=== PATIENT | female | born 1965 | race Caucasian/White ===

== ENCOUNTER 2018-07-03 19:32 | Emergency (ER) | payer MEDICAID ==
[2018-07-03] MEDS ORDERED: 0.9 % SODIUM CHLORIDE 1,000 ML BAG IV ONE (19:50)
[2018-07-03] MEDS ORDERED: KETOROLAC 30 MG/ML VIAL IVP ONE (19:50)
--- NOTE | 2018-07-03 19:58 | Emergency Department Record ---
History of Present Illness - General Chief Complaint: Back Pain/Injury Stated Complaint: LOWER BACK PAIN / BURNING WHEN URINATING Time Seen by Provider: 07/03/18 19:45 Source: Patient Mode of Arrival: Ambulatory Limitations: No limitations - History of Present Illness Initial Comments: 52 yo female presents with about one hour of left flank pain. Over the last week she has had some mild burning with urination at times. No fever. No nausea or vomiting. No diarrhea. She had a history of bilateral ureteral renal stones in 2014. No stones since that time. No visible blood in the urine. PCP is Reynaldo. She does not see a urologist. MD Complaint: Back pain Onset/Timin -: Week(s) Place: Home Radiation: Other (Left flank) Severity scale (1-10): 5 Quality: Aching Consistency: Getting worse Improves With: None Worsens With: Other Context: Other Associated Symptoms: Other - Related Data Home Medications Medication Instructions Recorded Confirmed Last Taken Amlodipine Besylate [Norvasc] 5 mg PO DAILY 07/03/18 07/03/18 07/03/18 Previous Rx's Medication Instructions Recorded Ciprofloxacin HCl [Cipro] 500 mg PO Q12HR #12 tablet 07/03/18 Allergies Allergy/AdvReac Type Severity Reaction Status Date / Time IOANA Inhibitors Allergy Severe SWELLING Verified 05/11/16 01:10 OF THE FACE Travel Screening - Travel/Exposure Within Last 30 Days Have you traveled within the last 30 days?: No - Travel Symptoms Symptom Screening: None Review of Systems Constitutional: Denies: Chills, Fever, Malaise, Weakness Eyes: Denies: Eye discharge ENT: Denies: Congestion, Throat pain Respiratory: Denies: Cough, Dyspnea Cardiovascular: Denies: Chest pain, Syncope Endocrine: Denies: Fatigue Gastrointestinal: Denies: Abdominal pain, Diarrhea, Nausea, Vomiting Genitourinary: Reports: Dysuria Musculoskeletal: Reports: Back pain. Denies: Arthralgia, Neck pain Skin: Denies: Bruising, Change in color, Rash Neurological: Denies: Headache, Vertigo Psychiatric: Denies: Anxiety Hematological/Lymphatic: Denies: Easy bleeding, Easy bruising Past Medical History - SOCIAL HISTORY Smoking Status: Never smoker - RESPIRATORY Hx Respiratory Disorders: No - CARDIOVASCULAR Hx Cardio Disorders: Yes Hx Hypertension: Yes - NEURO Hx Neuro Disorders: No - GI Hx GI Disorders: No - Hx Genitourinary Disorders: Yes Hx Kidney Stones: Yes (last one 1 yr ago per patient) - ENDOCRINE Hx Endocrine Disorders: No - MUSCULOSKELETAL Hx Musculoskeletal Disorders: No - PSYCH Hx Psych Problems: No - HEMATOLOGY/ONCOLOGY Hx Hematology/Oncology Disorders: No Family Medical History Any Significant Family History?: Yes Hx HTN: Father Physical Exam - General General Appearance: Alert, Oriented x3, Cooperative, No acute distress Limitations: No limitations - Head Head exam: Atraumatic, Normal inspection - Eye Eye exam: Normal appearance. negative: Conjunctival injection, Scleral icterus - ENT ENT exam: Normal exam Ear exam: Normal external inspection Nasal Exam: Normal inspection Mouth exam: Normal external inspection - Neck Neck exam: Normal inspection - Respiratory Respiratory exam: Normal lung sounds bilaterally. negative: Respiratory distress - Cardiovascular Cardiovascular Exam: Regular rate, Normal rhythm, Normal heart sounds - GI/Abdominal GI/Abdominal exam: Soft. negative: Distended, Guarding, Tenderness - Rectal Rectal exam: Deferred - exam: Deferred - Extremities Extremities exam: Normal inspection - Back Back exam: Reports: CVA tenderness (L), Full ROM - Neurological Neurological exam: Alert, Oriented X3 - Psychiatric Psychiatric exam: Normal affect, Normal mood - Skin Skin exam: Dry, Intact, Normal color, Warm Course Vital Signs 07/03/18 19:39 Temperature 98.9 F Pulse Rate 98 H Respiratory 20 Rate Blood Pressure 183/100 Pulse Ox 99 - Reevaluation(s) Reevaluation #1: 07/03/18 20:20 No acute changes on the CBC 07/03/18 20:48 The UA is consistent with UTI. Blood noted but she is on her menstrual cycle. 07/03/18 21:[address] demonstrates a possible 1mm distal stone with mild L sided hydronephrosis , there is another large stone in the bladder, this stone was previously noted on a scan in 2015. The stone is a little larger on this scan. 07/03/18 21:[address] Bubba Balderrama for Dr Trimble. We discussed the CT and the labs/UA. Given the stone is matias, very distal, no fever, no increased WBC count, no pain , no nausea now he recommend CT on Cipro with pain and fever precautions. If either occur she is to go to [facility]. The patient is in agreement with the plan. Medical Decision Making - Lab Data Result diagrams: 07/03/18 20:07 07/03/18 20:07 Disposition Disposition: Discharge Clinical Impression: Urinary tract infection, Renal stones Disposition: Home, Self-Care Condition: (1) Good Instructions: Urinary Tract Infection in Women (ED), Renal Colic (ED) Additional Instructions: Go directly to the [facility] if you have any uncontrolled pain or any fever Take the antibiotic twice daily Call the office on Friday to be seen Take a copy of the CT scan with your at that time Prescriptions: Ciprofloxacin HCl [Cipro] 500 mg PO Q12HR #12 tablet Referrals: [facility] [] - Forms: Patient Portal Access Time of Disposition: 22:30 Quality - Quality Measures Quality Measures: N/A - Blood Pressure Screening Does Patient Have Any of the Following: Active Dx of HTN Blood Pressure Classification: Hypertensive Reading Systolic Measurement: 156 Diastolic Measurement: 65 Screening for High Blood Pressure: Patient Exclusion, Hx of HTN [[id number]]
[2018-07-03 20:17] LABS: BASO % 0.7 % (0-6); EOS % 3.2 % (0-6); GRAN % 55.5 % (47-80); HEMATOCRIT 43.8 % (35.0-47.0); MEAN CELL VOLUME 87.3 fl (81-97); MEAN CORPUSCULAR HEMOGLOBIN 27.9 pg (27-33); MEAN PLATELET VOLUME 8.6 fl (7.4-10.4); MONO % 7.6 % (0-9); PLATELET COUNT 403 K/uL (130-400); RED BLOOD COUNT 5.02 M/uL (3.80-5.40); RED CELL DISTRIBUTION WIDTH 14.8 % (11.5-14.5); WHITE BLOOD COUNT W/O DIFF 9.1 K/uL (4.2-12.2)
[2018-07-03 20:17] LABS: URINE APPEARANCE CLEAR; URINE BILIRUBIN NEGATIVE (NEGATIVE); URINE BLOOD LARGE (NEGATIVE); URINE COLOR YELLOW; URINE GLUCOSE (UA) NEGATIVE (NEGATIVE); URINE KETONE NEGATIVE (NEGATIVE); URINE LEUKOCYTE ESTERASE MODERATE (NEGATIVE); URINE NITRITE NEGATIVE (NEGATIVE); URINE PROTEIN TRACE (NEGATIVE); URINE UROBILINOGEN 0.2 E.U./dL (0.20 - 1.00)
[2018-07-03 20:26] LABS: BLOOD UREA NITROGEN 15 mg/dL (6-20); CREATININE 0.7 mg/dL (0.5-0.9); EST GLOMERULAR FILTRATION RATE > 60 mL/min
[2018-07-03 20:27] LABS: HCG,QUALITATIVE URINE NEGATIVE (NEGATIVE); URINE BACTERIA 2+; URINE EPITHELIAL CELLS 0 - 2 (FEW)
[2018-07-03 20:29] LABS: GLUCOSE,RANDOM 95 mg/dL (74-109)
[2018-07-03] MEDS ORDERED: CEFTRIAXONE SODIUM 1 GM in 0.9 % SODIUM CHLORIDE 100ML 100 ML IVPB ONE (21:17)
[2018-07-03] MEDS ORDERED: CIPROFLOXACIN HCL 500 MG TABLET PO ONE ×2 (21:42→21:43)
[2018-07-03] MEDS ORDERED: HYDROCODONE/APAP 5/325MG TABLET PO ONE (21:42)
--- NOTE | 2018-07-05 21:32 | CT SCAN REPORT ---
EXAM: CT SCAN ABDOMEN/PELVIS WO CONTRAST HISTORY: PAIN WITH URINATION FOR ONE WEEK, LEFT LOWER BACK PAIN. TECHNIQUE: Noncontrast CT of the abdomen and pelvis. COMPARISON: Noncontrast CT abdomen and pelvis 06/16/2015. FINDINGS: No significant abnormality detected in the visualized lung bases. Low-attenuation of the hepatic parenchyma suggesting hepatic steatosis. Punctate calcified granuloma in the spleen. Unremarkable noncontrast appearance of the gallbladder, adrenal glands, and pancreas. No right hydronephrosis or right intrarenal calculi. At least two left intrarenal calculi. The largest is at the upper pole measuring approximately 4 mm. Punctate 1 mm hyperdensity at the left ureterovesicular junction (series 3, image #138) suggesting a calculus. Mild left hydroureteronephrosis. Chronic 12 mm ovoid calculus within the urinary bladder, increased in size from 2014 comparison. Stomach and small bowel are nondilated. Normal appendix. No focal colonic thickening or infilammatory changes. No free air or free fluid. No focal adnexal abnormalities detected. Mild calcification of the aortoiliac arterial access without evidence of aneurysm. No acute osseous findings. IMPRESSION: 1. SUGGESTION OF A VERY FAINT PUNCTATE 1 MM CALCULUS AT THE LEFT URETEROVESICULAR JUNCTION WITH MILD LEFT HYDRONEPHROSIS. 2. ADDITIONAL INTRARENAL LEFT CALCULI. 3. THERE IS A CALCULUS WITHIN THE URINARY BLADDER MEASURING UP TO 12 MM, WHICH IS ENLARGED FROM 2015 COMPARISON. 4. APPEARANCE SUGGESTIVE OF HEPATIC STEATOSIS. JOB NUMBER: [id number] MTDD
== END 2018-07-03 22:09 | disposition home or self-care (01) ==
LOC: ER 19:32
DX: N13.2 Hydronephrosis with renal and ureteral calculous obstruction (principal); N39.0 Urinary tract infection, site not specified; M54.2 Cervicalgia; R30.0 Dysuria; I10 Essential (primary) hypertension; Z87.442 Personal history of urinary calculi
CPT/HCPCS: 99284 ×2; 96365; 96375; 96361; 85025; 80048; 81001; 81025; 74176; J1885; J7030

== ENCOUNTER 2018-07-14 20:22 | Emergency (ER) | payer OTHER ==
--- NOTE | 2018-07-14 20:45 | Emergency Department Record ---
History of Present Illness - General Chief complaint: Female Urogenital Problem Stated complaint: BURNING WHEN URINATING Time Seen by Provider: 07/14/18 20:31 Source: Patient Mode of Arrival: Ambulatory Limitations: No limitations - History of Present Illness Initial comments: The patient is here due to being treated for a UTI and a possible L ureter stone for about 10 days. She denies any kidney pain but now is having vaginal burning for one day. There is no hx of fever, chills, or AP. She has not been able to see a Urologist. The patient did start Monistat today. MD Complaint: Dysuria, Other (vaginal pain.) Onset/Timin -: Days(s) Location: Perineum Severity scale (1-10): 5 Quality: Burning Consistency: Intermittent Improves with: None Worsens with: Urination Associated Symptoms: Denies other symptoms - Related Data Previous Rx's Medication Instructions Recorded Ciprofloxacin HCl [Cipro] 1 tab PO Q12H #14 tab 07/14/18 Allergies Allergy/AdvReac Type Severity Reaction Status Date / Time IOANA Inhibitors Allergy Severe SWELLING Verified 05/11/16 01:10 OF THE FACE Travel Screening - Travel/Exposure Within Last 30 Days Have you traveled within the last 30 days?: No - Travel Symptoms Symptom Screening: None Review of Systems Constitutional: Denies: Chills, Fever Eyes: Denies: Eye discharge ENT: Denies: Congestion Respiratory: Denies: Cough, Dyspnea Cardiovascular: Denies: Chest pain Endocrine: Denies: Fatigue Gastrointestinal: Denies: Abdominal pain Genitourinary: Reports: Dysuria Musculoskeletal: Denies: Arthralgia, Back pain Skin: Denies: Bruising Past Medical History - SOCIAL HISTORY Smoking Status: Never smoker - RESPIRATORY Hx Respiratory Disorders: No - CARDIOVASCULAR Hx Cardio Disorders: Yes Hx Hypertension: Yes - NEURO Hx Neuro Disorders: No - GI Hx GI Disorders: No - Hx Genitourinary Disorders: Yes Hx Kidney Stones: Yes (last one 1 yr ago per patient) - ENDOCRINE Hx Endocrine Disorders: No - MUSCULOSKELETAL Hx Musculoskeletal Disorders: No - PSYCH Hx Psych Problems: No - HEMATOLOGY/ONCOLOGY Hx Hematology/Oncology Disorders: No Family Medical History Any Significant Family History?: Yes Hx HTN: Father Physical Exam - General General Appearance: Alert, Oriented x3, Cooperative, No acute distress - Head Head exam: Atraumatic, Normocephalic, Normal inspection - Eye Eye exam: Normal appearance, PERRL - Neck Neck exam: Normal inspection, Full ROM. negative: Tenderness - Respiratory Respiratory exam: Normal lung sounds bilaterally. negative: Respiratory distress - Cardiovascular Cardiovascular Exam: Regular rate, Normal rhythm, Normal heart sounds - GI/Abdominal GI/Abdominal exam: Soft, Normal bowel sounds. negative: Rebound, Rigid, Tenderness - exam: Abnormal external exam (There is mild external irritation on palpation and inspection.). negative: Vaginal bleeding, Vaginal discharge, Vaginal erythema - Extremities Extremities exam: Normal inspection, Full ROM, Normal capillary refill. negative: Tenderness - Back Back exam: Reports: Normal inspection. Denies: CVA tenderness (R), CVA tenderness (L) - Neurological Neurological exam: Alert, Normal gait. negative: Abnormal gait, Motor sensory deficit - Psychiatric Psychiatric exam: negative: Anxious Course Vital Signs 07/14/18 20:31 Temperature 98.5 F Pulse Rate [ 108 H Pulse Ox Probe] Respiratory 20 Rate Blood Pressure 178/97 [Left Arm] Pulse Ox 100 - Reevaluation(s) Reevaluation #1: The patient is pain free at this time and is resting comfortably. I do not think the patient's issues are from an infection but are from the bladder stone. I did discuss the need to see the Urologist which the patient understands. I also did put a consult into the [facility]. Additionally I discussed the need for the patient to see her PCP due to the high calcium and she will comply. 07/14/18 21:19 07/14/18 21:22 Medical Decision Making - Data Complexity MDM Data: Labs Ordered and/or Reviewed - Lab Data Result diagrams: 07/14/18 20:48 07/14/18 20:48 Disposition Disposition: Discharge Clinical Impression: Hematuria Qualifiers: Hematuria type: unspecified type Qualified Code(s): R31.9 - Hematuria, unspecified Disposition: Home, Self-Care Condition: (2) Stable Instructions: Hematuria (ED) Additional Instructions: PLease stop the Bactrim and start the Cipro. Please drink plenty of fluids and see the Urologist [facility]. Please also see your family doctor due to the high calcium on your lab screen. Return to the ER for any worsening symptoms. Prescriptions: Ciprofloxacin HCl [Cipro] 1 tab PO Q12H #14 tab Referrals: [facility] [Provider Group] Forms: Patient Portal Access Time of Disposition: 21:23 Quality - Quality Measures Quality Measures: N/A - Blood Pressure Screening View Details: Yes Does Patient Have Any of the Following: No Blood Pressure Classification: Pre-Hypertensive BP Reading Systolic Measurement: 150 Diastolic Measurement: 89 Screening for High Blood Pressure: < Pre-Hypertensive BP, F/U Documented > [ [id number]] Pre-Hypertensive Follow-up Interventions: Referral to alternative/primary care provider.
[2018-07-14 20:58] LABS: BASO % 0.6 % (0-6); EOS % 1.6 % (0-6); GRAN % 63.7 % (47-80); HEMATOCRIT 42.7 % (35.0-47.0); HEMOGLOBIN 14.1 gm/dl (11.6-16.0); LYMPH % 25.4 % (16-45); MEAN CELL VOLUME 86.1 fl (81-97); MEAN CORPUSCULAR HEMOGLOBIN 28.4 pg (27-33); MONO % 8.7 % (0-9); PLATELET COUNT 437 K/uL (130-400); RED BLOOD COUNT 4.96 M/uL (3.80-5.40); RED CELL DISTRIBUTION WIDTH 14.7 % (11.5-14.5); WHITE BLOOD COUNT W/O DIFF 9.4 K/uL (4.2-12.2)
[2018-07-14 20:59] LABS: URINE APPEARANCE CLOUDY; URINE BILIRUBIN NEGATIVE (NEGATIVE); URINE BLOOD LARGE (NEGATIVE); URINE COLOR YELLOW; URINE GLUCOSE (UA) NEGATIVE (NEGATIVE); URINE KETONE NEGATIVE (NEGATIVE); URINE LEUKOCYTE ESTERASE NEGATIVE (NEGATIVE); URINE NITRITE NEGATIVE (NEGATIVE); URINE PROTEIN TRACE (NEGATIVE); URINE UROBILINOGEN 0.2 E.U./dL (0.20 - 1.00)
[2018-07-14 21:06] LABS: BLOOD UREA NITROGEN 16 mg/dL (6-20); EST GLOMERULAR FILTRATION RATE > 60 mL/min
[2018-07-14 21:08] LABS: URINE CALCIUM OXALATE CRYSTALS 4+ /hpf; URINE EPITHELIAL CELLS 16 - 20 (FEW)
[2018-07-14 21:09] LABS: GLUCOSE,RANDOM 103 mg/dL (74-109)
[2018-07-14 21:09] LABS: URINE BACTERIA 2+
== END 2018-07-14 21:31 | disposition home or self-care (01) ==
LOC: ER 20:22
DX: N21.0 Calculus in bladder (principal); R31.29 Other microscopic hematuria; I10 Essential (primary) hypertension; Z87.442 Personal history of urinary calculi
CPT/HCPCS: 80048; 81001; 85025; 99283